=== PATIENT | female | born 1970 | race Two or more races ===

== ENCOUNTER 2017-04-08 12:19 | Outpatient (CLI) | payer OTHER ==
[~2017-04-08 12:19] MED LIST: TRAM1TAB98 PO
== END 2017-04-08 12:25 | disposition home or self-care (01) ==
LOC: SONOGRAMA 12:19
DX: E07.9 Disorder of thyroid, unspecified (principal)

== ENCOUNTER 2017-04-09 13:38 | Outpatient (CLI) | payer OTHER | END 2017-04-09 15:27 | disposition home or self-care (01) | LOC: SONOGRAMA 13:38 | DX: D25.1 Intramural leiomyoma of uterus (principal) ==

== ENCOUNTER 2017-10-18 12:01 | Outpatient (CLI) | payer OTHER | END 2017-10-18 12:03 | disposition home or self-care (01) | LOC: SONOGRAMA 12:01 | DX: E07.89 Other specified disorders of thyroid (principal) ==

== ENCOUNTER 2022-09-24 09:47 | Emergency (ER) | payer OTHER ==
[~2022-09-24] VITALS: Ht 165.1 cm; Wt 81.6 kg
[2022-09-24] MEDS ORDERED: LOSARTAN POTASS25 MG (09:56)
[2022-09-24] MEDS ORDERED: MEGESTROL ACETA40 MG (09:56)
[2022-09-24] MEDS ORDERED: METFORMIN HCL500 M4 (09:56)
[2022-09-24] MEDS ORDERED: DICLOFENAC SODI75 MG PO (10:09)
== END 2022-09-24 10:20 | disposition home or self-care (01) ==
LOC: ER 09:47
DX: M54.9 Dorsalgia, unspecified (principal); I10 Essential (primary) hypertension; Z91.013 Allergy to seafood

== ENCOUNTER 2023-03-26 09:39 | Outpatient (CLI) | payer OTHER ==
[~2023-03-26 09:39] MED LIST changes: +DICLOFENAC SODI75 MG PO; +LOSARTAN POTASS25 MG; +MEGESTROL ACETA40 MG; +METFORMIN HCL500 M4
== END 2023-03-26 09:52 | disposition home or self-care (01) ==
LOC: MRI 09:39
PROVIDERS: ATTEND Obstetrics & Gynecology Gynecologic Oncology
DX: R97.1 Elevated cancer antigen 125 [CA 125] (principal); N93.9 Abnormal uterine and vaginal bleeding, unspecified; D50.9 Iron deficiency anemia, unspecified
CPT/HCPCS: 72197

== ENCOUNTER 2023-03-26 11:56 | Outpatient (CLI) | payer OTHER ==
[2023-03-26 12:43] LABS: CREATININE SERUM 0.78 mg/dL (0.55-1.02); GFR 76.96
== END 2023-03-26 11:57 | disposition home or self-care (01) ==
LOC: LAB 11:56
PROVIDERS: ATTEND Radiology Diagnostic Radiology
DX: R97.1 Elevated cancer antigen 125 [CA 125] (principal)

== ENCOUNTER 2023-04-06 06:53 | Outpatient (CLI) | payer OTHER ==
[2023-04-06 07:54] LABS: URINE APPEARANCE Clear; URINE BILIRRUBIN Negative (NEGATIVE); URINE BLOOD Large; URINE COLOR Yellow; URINE GLUCOSE Negative (NEGATIVE); URINE LEUKOCYTE Trace; URINE NITRATE Negative; URINE PROTEIN Trace (NEGATIVE); URINE UROBILINOGEN 0.2 E.U./dl
[2023-04-06 07:58] LABS: URINE BACTERIA 192.7 uL (0.0-1933); URINE EPITHELIAL CELLS 14.5 uL (0.0-38.8); URINE RBC 7708.1 uL (0.0-20.8); URINE WBC 9.7 uL (0.0-23.2)
[2023-04-06 08:10] LABS: HEMATOCRIT 35.6 % (36.0-45.00); HEMOGLOBIN 11.9 g/dL (12.0-15.00); MEAN CELL VOLUME 78.9 fL (80.00-100.00); MEAN CORPUSCULAR HEMOGLOBIN 26.4 pg (27.00-32.0); MEAN CORPUSCULAR HGB CONC 33.5 g/dl (32.0-36.0); PLATELET COUNT 264 K/uL (150-450); RED BLOOD COUNT 4.51 M/uL (4.00-6.00); RED CELL DISTRIBUTION WIDTH 14.4 % (11.5-14.5)
[2023-04-06 08:27] LABS: ALBUMIN 3.8 gm/dL (3.4-5.0); BILIRUBIN TOTAL 0.71 mg/dL (0.3-1.2); CREATININE SERUM 0.84 mg/dL (0.55-1.02); GFR 70.65; GLOBULINA 3.5 G/DL (2.4-3.5); POTASSIUM 3.87 mEq/L (3.5-5.1); TOTAL PROTEIN 7.3 gm/dL (6.4-8.2)
[2023-04-06 08:28] LABS: INR 0.98; PARTIAL THROMBOPLASTIN TIME 27.1 SECONDS (22.0-34.0); PROTHROMBIN TIME 10.3 SECONDS (9.0-11.5)
== END 2023-04-06 06:54 | disposition home or self-care (01) ==
LOC: LAB 06:53
PROVIDERS: ATTEND Obstetrics & Gynecology Gynecologic Oncology
DX: D25.9 Leiomyoma of uterus, unspecified (principal); Z01.818 Encounter for other preprocedural examination; Z20.822 Contact with and (suspected) exposure to COVID-19; I10 Essential (primary) hypertension; N39.0 Urinary tract infection, site not specified

== ENCOUNTER 2023-04-09 11:30 | Inpatient (IN) | payer OTHER ==
[~2023-04-09] VITALS: Ht 165.1 cm; Wt 82.6 kg
[2023-04-15] MEDS ORDERED: CEFOXITIN SODIUM 2,000 MG VIAL IV ONE ×2 (12:30→19:31)
[2023-04-15] MEDS ORDERED: CEFOXITIN SODIUM 2,000 MG in 0.9 % SODIUM CHLORIDE 100 ML IV ONE (13:45)
[2023-04-15] MEDS ORDERED: MORPHINE SULFATE 4 MG/ML CARTRIDGE IV PRN (14:15)
[2023-04-15] MEDS ORDERED: ONDANSETRON HCL 2 MG/ML VIAL IV PRN (14:15)
[2023-04-15] MEDS ORDERED: THROMBIN,HU/FIBRINOGEN/CALCIUM 4 ML SYRINGE TOP ONE ×2 (14:15→14:36)
[2023-04-15] MEDS ORDERED: RINGERS SOLUTION,LACTATED 1,000 ML IV SCH (14:15)
[2023-04-15] MEDS ORDERED: SUGAMMADEX SODIUM 200 MG/2 ML VIAL IV ONE ×2 (14:38→14:45)
[2023-04-15] MEDS ORDERED: ENALAPRILAT DIHYDRATE 1.25 MG/ML VIAL IV PRN (15:30)
[2023-04-15] MEDS ORDERED: DEXTROSE 50 % IN WATER 0.5 G/ML DISP.SYRIN IV PRN (15:30)
[2023-04-15] MEDS ORDERED: INSULIN LISPRO 1,000 UNIT/10 ML UNITS SUBCUTANEO PRN (15:30)
[2023-04-15] MEDS ORDERED: SIMETHICONE 125 MG CAPSULE PO SCH (17:00)
[2023-04-15] MEDS ORDERED: CEFOXITIN SODIUM 2,000 MG VIAL IV SCH (17:00)
[2023-04-15] MEDS ORDERED: KETOROLAC TROMETHAMINE 30 MG VIAL IU SCH (17:00)
[2023-04-15] MEDS ORDERED: KETOROLAC TROMETHAMINE 30 MG VIAL ONE (19:32)
[2023-04-15 19:35] LABS: HEMATOCRIT 34.3 % (36.0-45.00); HEMOGLOBIN 11.3 g/dL (12.0-15.00); MEAN CELL VOLUME 79.6 fL (80.00-100.00); MEAN CORPUSCULAR HEMOGLOBIN 26.4 pg (27.00-32.0); MEAN CORPUSCULAR HGB CONC 33.1 g/dl (32.0-36.0); PLATELET COUNT 250 K/uL (150-450); RED CELL DISTRIBUTION WIDTH 15.2 % (11.5-14.5)
[2023-04-15 20:02] LABS: CALCIUM 8.8 mg/dL (8.5-10.1); CREATININE SERUM 0.75 mg/dL (0.55-1.02); GFR 80.53; POTASSIUM 4.06 mEq/L (3.5-5.1)
[2023-04-15] MEDS ORDERED: DOCUSATE SODIUM 100MG CAP PO SCH (21:00)
[2023-04-15] MEDS ORDERED: FAMOTIDINE/PF 20 MG/2 ML VIAL IV SCH (21:00)
[2023-04-16 03:05] LABS: HEMATOCRIT 32.4 % (36.0-45.00); HEMOGLOBIN 10.9 g/dL (12.0-15.00); MEAN CELL VOLUME 80.1 fL (80.00-100.00); MEAN CORPUSCULAR HGB CONC 33.8 g/dl (32.0-36.0); PLATELET COUNT 262 K/uL (150-450); RED BLOOD COUNT 4.05 M/uL (4.00-6.00); RED CELL DISTRIBUTION WIDTH 15.3 % (11.5-14.5)
[2023-04-16 03:49] LABS: CREATININE SERUM 0.87 mg/dL (0.55-1.02); GFR 67.85; POTASSIUM 3.96 mEq/L (3.5-5.1)
[2023-04-16] MEDS ORDERED: OxyCODONE HCL/APAP UD (PERCOCET) PO PRN (07:00)
[2023-04-16] MEDS ORDERED: ENOXAPARIN SODIUM 40 MG/0.4 ML SYRINGE SUBCUTANEO SCH (09:00)
[2023-04-16] MEDS ORDERED: LOSARTAN POTASSIUM 25 MG TABLET PO SCH (09:00)
[2023-04-16] MEDS ORDERED: IBUprofen 800 MG TABLET PO SCH (09:00)
== END 2023-04-17 11:04 | disposition home or self-care (01) | DRG 743 ==
LOC: O/R 04-15 06:39 → OB/GYN 04-15 06:39 → SURG 04-15 11:30 → O/R 04-15 13:18 → SURG 04-15 13:30 → OB/GYN 04-15 15:40
PROVIDERS: Obstetrics & Gynecology; ADMIT Obstetrics & Gynecology Gynecologic Oncology; ATTEND Obstetrics & Gynecology Gynecologic Oncology
PROC: 0UT70ZZ Resection of Bilateral Fallopian Tubes, Open Approach (ICD-10-PCS; 2023-04-15)
PROC: 0UT20ZZ Resection of Bilateral Ovaries, Open Approach (ICD-10-PCS; 2023-04-15)
PROC: 07BC0ZZ Excision of Pelvis Lymphatic, Open Approach (ICD-10-PCS; 2023-04-15)
PROC: 0DBU0ZZ Excision of Omentum, Open Approach (ICD-10-PCS; 2023-04-15)
PROC: 3E1M38Z Irrigation of Peritoneal Cavity using Irrigating Substance, Percutaneous Approach (ICD-10-PCS; 2023-04-15)
PROC: 0UT90ZZ Resection of Uterus, Open Approach (ICD-10-PCS; principal; 2023-04-15 13:30)
DX: D25.1 Intramural leiomyoma of uterus (principal); D25.0 Submucous leiomyoma of uterus; D25.2 Subserosal leiomyoma of uterus; N72 Inflammatory disease of cervix uteri; Z20.822 Contact with and (suspected) exposure to COVID-19

== ENCOUNTER 2023-06-04 17:23 | Emergency (ER) | payer OTHER ==
[~2023-06-04] VITALS: Ht 165.1 cm; Wt 86.2 kg
[2023-06-04] MEDS ORDERED: ONDANSETRON HCL 2 MG/ML VIAL IV STA (19:13)
[2023-06-04] MEDS ORDERED: MECLIZINE HCL 25 MG TABLET PO STA (19:13)
[2023-06-04 19:34] LABS: HEMATOCRIT 36.2 % (36.0-45.00); HEMOGLOBIN 12.5 g/dL (12.0-15.00); MEAN CELL VOLUME 79.4 fL (80.00-100.00); MEAN CORPUSCULAR HEMOGLOBIN 27.4 pg (27.00-32.0); MEAN CORPUSCULAR HGB CONC 34.5 g/dl (32.0-36.0); PLATELET COUNT 277 K/uL (150-450); RED BLOOD COUNT 4.56 M/uL (4.00-6.00)
[2023-06-04 19:51] LABS: CALCIUM 9.7 mg/dL (8.5-10.1); CREATININE SERUM 0.8 mg/dL (0.55-1.02); GFR 74.75; POTASSIUM 3.92 mEq/L (3.5-5.1)
== END 2023-06-04 22:08 | disposition home or self-care (01) ==
LOC: ER 17:24
PROVIDERS: General Practice
DX: R42 Dizziness and giddiness (principal); Z91.013 Allergy to seafood; E11.9 Type 2 diabetes mellitus without complications; Z79.4 Long term (current) use of insulin